=== PATIENT | male | born 1960 | race Caucasian/White ===

== ENCOUNTER 2022-06-30 09:52 | Outpatient (CLI) | payer BC, SELFPAY | END 2022-06-30 09:53 | disposition home or self-care (01) | PROVIDERS: PCP Family Medicine; Visit Provider Family Medicine | DX: Z00.00 Encounter for general adult medical examination without abnormal findings (principal); I10 Essential (primary) hypertension; E78.5 Hyperlipidemia, unspecified; E13.9 Other specified diabetes mellitus without complications; N40.0 Benign prostatic hyperplasia without lower urinary tract symptoms; M10.9 Gout, unspecified; Z13.29 Encounter for screening for other suspected endocrine disorder | CPT/HCPCS: 80048; 80061; 84153 ==

== ENCOUNTER 2023-08-03 10:06 | Outpatient (CLI) | payer BC, SELFPAY | END 2023-08-03 10:07 | disposition home or self-care (01) | PROVIDERS: PCP Family Medicine; Visit Provider Family Medicine | DX: E13.9 Other specified diabetes mellitus without complications (principal); E78.5 Hyperlipidemia, unspecified; I10 Essential (primary) hypertension | CPT/HCPCS: 80048; 80061 ==

== ENCOUNTER 2024-03-25 15:37 | Outpatient (CLI) | payer BC, SELFPAY | END 2024-03-25 15:38 | disposition home or self-care (01) | LOC: LKVREF 15:39 | PROVIDERS: PCP Family Medicine; Visit Provider Family Medicine | DX: Z12.5 Encounter for screening for malignant neoplasm of prostate (principal) | CPT/HCPCS: G0103 ==

== ENCOUNTER 2024-04-09 13:58 | Outpatient (RCR) | payer BC, SELFPAY ==
--- NOTE | 2024-04-09 15:37 | PT.OPEX ---
PT [place] Outpatient Eval PT [facility] Outpatient Eval Start: 04/09/24 10:40 Freq: Status: Active Protocol: Document 04/09/24 10:40 HLA (Rec: 04/09/24 15:36 HLA [id number]) E-signed By Radha Samano, PT, DPT Physical Therapy Outpatient Evaluation Insurance Information Insurance Name [employer] Medical Diagnosis OA L knee, pain, stiffness, preop teaching for TKA surgery PMHx of type II diabetes, hyperlipidemia, HTN, AURELIANO, gout Treating Diagnosis L knee pain, OA, stiffness Referring MD Roque Subjective Preferred Name Osman Subjective Occ pain L knee, limits amb, knee bows and gives out, feels ready to get his knee done 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 Pt can amb 1/2 mile. Balance screen intact Stairs reciprocally Sensation/Reflexes intact to light touch Assessment Assessment/Impression Osman is a 63 year old male with PMHx of type II DM, HTN, hyperlipidemia, AURELIANO, and gout, now with pain due to OA L knee and will be undergoing a L TKA with Dr. Roque on . Here for preop teaching. Pt lives in a 1 level home, 3 step entry no stairs. can assist after surgery. Has basement shower, main floor shower in tub with glass doors so he will use basement shower. Needs to borrow a walker, has cane for home. Pt was instructed in TKA ex program (quad sets, ham sets, ankle pumps, heel slides, SAQ, SLR, seated knee flex/ext and hamstring stretches) per protocol to be practiced pre- operatively and for improved learning post-operatively. Pt was instructed in hospital post-op progression in PT, safety, fall prevention. Pt was instructed in positioning in chair, use of ice/polar care, bed, transfer safety, gt safety with walker, stairs, car transfers and outpatient therapy progression. He will dc with OP PT in [place] after surgery. DC. Primary Functional Limitations pain L knee, impaired mobility Plan of Care Rehabilitation Potential Excellent Physical Therapy Goals 1. Within this session: Pt will verbalize understanding of pre-op/post-op safety, mobility and exercises with home program issued and pt returning for ongoing therapy after TKA replacement. Coordination/Communication With Referral Source Treatment Plan/Direct Interventions Gait Training,Manual Therapy, Neuromuscular Re-ed,Self-Care/ Home Management,Therapeutic Activities,Therapeutic Exercises Patient Will Be Discharged From Therapy Completion of LTG(s),Skills Plateau,Independent w/HEP, Independently Progressing Evaluation Billing Untimed Code Treatment Minutes 10 PT Eval No Charge No Complexity Low Certification Information Initial Certification Date 04/09/24 Ending Certification Date 07/07/24 Provider Signature Required Yes Provider Signature Shows Agreement With POC & Medical Necessity Physician NPI Number Write NPI# Here Physician Comment/Change : Physician Signature & Date Requested Please Sign/Date Here
== END 2024-04-10 11:33 | disposition home or self-care (01) ==
PROVIDERS: PCP Family Medicine; Visit Provider Orthopaedic Surgery
DX: M17.12 Unilateral primary osteoarthritis, left knee (principal); Z96.652 Presence of left artificial knee joint; M25.562 Pain in left knee; Z51.89 Encounter for other specified aftercare
CPT/HCPCS: 97110; 97161

== ENCOUNTER 2024-04-15 05:50 | Day surgery (SDC) | payer BC, SELFPAY ==
[2024-04-15] VITALS (19 sets, daily range): BP systolic 100–124; BP diastolic 61–85; PULSE 46–70; RESP 14–17; TEMP 36.1–37.3; O2SAT 92–98; BMI 34.7
--- OUTSIDE RECORDS SUMMARY | 2024-04-15 05:52 | XMS_ITS | Clinical Summary ---
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
--- OUTSIDE RECORDS SUMMARY | 2024-04-15 05:52 | XMS_ITS | Continuity of Care Document ---
Author Organization [facility] Address [address] [address] [place] [address] Phone Care Team Providers Care Clinical Quality Assurance Specialist Name Role Phone Sergio Sams MD Unavailable Unavailable Allergies, Adverse Reactions, Alerts Substance Reaction Status Criticality No Known allergies Medications Medication Instructions Dosage Effective Dates (start - stop) Status Comments Prilosec 20 mg Cap Take one tablet by mouth twice a day - Active Procedures Procedure Date Ugi Endo; W/bx 1/mx Esoph Motility Study; Offic/outpt E&m Estab Mod-hi 2 09 Ugi Endo; W/bx 1/mx Advance Directives Directive Yes / No Effective Date File Name No Information Encounters Encounter Description Practice Location Reason(s) For Visit Diagnoses Date Provider Providers Copied on Encounter [facility], [address] [address], [place], [place], [id number], [place] tel:[phone] [facility] No Information [address] [facility], [facility] [address], [place], [place], [id number], [place]. tel:[phone] [facility], [address] [address], [place], [place], [id number], [place] tel:[phone] [facility] No Information 2 No Information Referring Provider: Sam Cannon, [address] [place] [address], [address]. tel:[phone] [facility], [address] [address], [place], [place], [id number], [place] tel:[phone] [facility] No Information [address]. [address] [facility], [place], [place], [address], [place]. tel:[phone] Referring Provider: Sam Cannon, [address] [place], [address]. tel:[phone] Offic/outpt E&m Estab Mod-hi 2 [facility], [address] [address], [place], [place], [id number], [place] tel:[phone] [facility] [employer] No Information 9 No Information Referring Provider: Sam Cannon, [address] [place] [address], [address]. tel:[phone] [facility], [address] [address], [place], [place], [address], [place] tel:[phone] [facility] [employer] No Information 9 No Information Referring Provider: Sam Cannon, [address] [place] [address], [address]. tel:[phone] Family History Family Member Type Diagnosis Age At Onset No Information Payers Payer name Insurance type Covered constitution party ID Authoriza tion(s) No Information Social History Type Description Quantity Date Captured Comments Sex Male Smoking Status No Information Chief Complaint And Reason For Visit No Information Reason For Referral Reason For Referral No Information History Of Present Illness Encounter Date Complaint History Of Prese nt Illness No Information Functional Status Date Functional Assessmen t No Information Instructions Date Instruction Additional Infor mation No Information Assessments Type Assessment Date No Information Patient Care Teams Name Effective Dates (start - stop) Status Members No Information
[2024-04-15] MEDS: OXYCODONE (CR) 10 MG TAB.ER.12H PO (06:30)
[2024-04-15] MEDS: CELECOXIB 200 MG CAPSULE PO (06:30)
[2024-04-15] MEDS: ACETAMINOPHEN 500 MG TABLET 1000 MG PO (06:30)
[2024-04-15] MEDS: LACTATED RINGERS 1000 ML 1,000 ML 100 ML IV ×2 (06:45→09:45)
[2024-04-15] MEDS: SODIUM CHLORIDE 0.9 % (FLUSH) 10 ML SYRINGE IVF (06:45)
[2024-04-15] MEDS: MIDAZOLAM HCL 1 MG/ML inj IVP (07:13)
[2024-04-15] MEDS: fentaNYL 100 MCG/2 ML inj IVP (07:13)
--- NOTE | 2024-04-15 07:17 | SUR.PREOP ---
TIME?OUT:?711 PT/RN/MDA?VERIFICATION?OF?SURGICAL?SITE,?PROCEDURE,?AND?CONSENT OBTAINED?PRIOR?TO?INVASIVE?PROCEDURE.
[2024-04-15] MEDS: TRANEXAMIC ACID 100 MG/ML INJ 1000 MG IV (08:16)
[2024-04-15] MEDS: CEFAZOLIN 2 GM INJ IVP (08:17)
--- NOTE | 2024-04-15 09:24 | CRLHL7_ITS ---
For Patients: As a result of the Cures Act, medical imaging exams and procedure reports are released immediately into your electronic medical record. You may view this report before your referring provider. If you have questions, please contact your health care provider. Indication: Postop status post left TKA Technique: Two views were obtained portably immediately postoperatively Comparison: None Findings: As described below Impression: There is a left knee arthroplasty noted. Alignment is normal. No fracture. No abnormal lucency about the implants. No unexpected findings immediately postoperatively by plain film. Dictated by Joseph Bustamante MD @ 04/15/2024 11:32:45 AM (Electronically Signed)
--- NOTE | 2024-04-15 09:26 | PM.ORPRC ---
Procedure Note Date of procedure: 04/15/24 Procedure: PREOPERATIVE DIAGNOSIS: Left knee osteoarthritis POSTOPERATIVE DIAGNOSIS: Left knee osteoarthritis NAME OF OPERATION: Left total knee arthroplasty SURGEON: Yann Roque MD ELECTROPLATER APPRENTICE: TENZIN Dos Santos ANESTHESIA: Spinal ESTIMATED BLOOD LOSS: 0 mL COMPLICATIONS: None SPECIMENS: None DRAINS: None PREOPERATIVE ANTIBIOTICS: Ancef 2 grams, antibiotic impregnated cement IMPLANTS: 1. J&J Attune # 9 posterior stabilized femur 2. # 8 fixed-bearing tibia 3. # 9 posterior stabilized, 5 mm fixed-bearing polyethylene 4. 41 patella INDICATIONS: The patient is a 63-year-old with a longstanding history of severe, unrelenting left knee pain secondary to end-stage (grade IV) left knee osteoarthritis. Despite appropriate nonoperative management, including activity modification, anti-inflammatories, rzlz-phy-nxxwpnk pain medication, bracing, physical therapy, and injections they continue to have pain and disability. Operative intervention was offered. The risks, benefits and expected outcomes were discussed in detail. These included but were not limited to: Infection, bleeding, injury to blood vessel or nerve, venous thromboembolism. All questions were answered to their satisfaction. Use of an assistant professor sculpture was necessary throughout the case for patient positioning and safety, soft tissue retraction, and closure. PROCEDURE: Spinal anesthesia was administered. The patient was placed supine on the operating table. The assistant professor sculpture made sure the patient was positioned appropriately. The lower extremity was prepped and draped in the usual sterile fashion. The limb was exsanguinated with the Gurdeep bandage. The pneumatic tourniquet was inflated to 300 mmHg. A standard anterior incision was made with the knee in flexion. Subcutaneous dissection was sharply taken through fascial layer #1. Full-thickness medial and lateral flaps were elevated. The assistant professor sculpture retracted the soft tissues and protected them throughout the case. A standard subvastus approach was made. The patella was subluxed. The infrapatellar fat pad was debrided. The menisci and cruciate ligaments were sharply d?brided. Marginal osteophytes were d?brided with the rongeur. The drill was used to penetrate the femoral canal. The canal was aspirated and irrigated with pulse lavage. The intramedullary femoral guide was placed for a 5-degree valgus cut, removing 10 mm off the distal femur. The saw was used to make the cut. Whitesides line and the trans epicondylar axis were marked. The femoral sizing guide was pinned onto the distal femur. Three degrees of external rotation nicely parallels the transepicondylar axis. Pins were placed for posterior referencing. The four-in-one cutting guide was pinned onto the distal femur. The anterior, posterior, and chamfer cuts were made. The assistant professor sculpture protected the collateral ligaments. The box cutting guide was pinned. The box cuts were made. The boxed trial was placed and was an excellent fit. Drill holes for the lugs were made. Attention was then turned to the proximal tibia. The extramedullary tibial guide was placed for a neutral varus/valgus cut with 5 degrees of posterior slope, removing 2 mm based off the medial tibial surface. The assistant professor sculpture protected the collateral ligaments and the neurovascular bundle. The saw was used to make the cut. Trial components were placed. The knee was nicely balanced in both flexion and extension. The trial components were removed. The tray was placed in appropriate rotation, parallel to our tibial cutting pins. It was pinned by the assistant professor sculpture and the drill and the punch were used. The tray was removed. The punch was used again. We placed a bone plug in the femoral canal. Attention was then turned to the patella. Telida patellar thickness was 25 mm. The lobster claw resection guide was used with the 9.5 mm ninoska. The saw was used to make the cut. Drill holes were made by the assistant professor sculpture. The trial was placed and was an excellent fit. Cancellous surfaces were irrigated with pulse lavage and thoroughly dried by the assistant professor sculpture. We cemented the tibial component, then the femoral component. We impacted the 5 mm polyethylene onto the tibial tray. The knee was brought into full extension. We then cemented the patellar component. Excessive cement was removed. The cement was allowed to harden. The knee was taken through a range of motion and was found to be nicely balanced in both flexion and extension. The patella tracks centrally. The assistant professor sculpture did a three minute dilute Betadine solution soak. The assistant professor sculpture irrigated the wound with 3 liters of normal saline via pulse lavage. The assistant professor sculpture reapproximated the extensor mechanism with #1 Vicryl in an interrupted hxzmca-hx-lnkvh fashion. The assistant professor sculpture then ran the extensor mechanism with a #1 PDO Stratafix. The assistant professor sculpture closed the subcutaneous tissues with a 3-0 Stratafix and the skin with a running 3-0 Stratafix in a subcuticular fashion. Glue was used to seal the skin. The assistant professor sculpture placed a dry dressing. Sponge and needle counts were correct x2. The patient tolerated the procedure well. There were no apparent complications. They were carefully transferred to the hospital bed and taken to the postanesthesia care unit in satisfactory condition. PLAN: The patient will be mobilized with physical therapy. Aspirin will be used for DVT prophylaxis. They will be discharged to home once medically appropriate.
--- NOTE | 2024-04-15 10:02 | P.ANES_ITS ---
Anesthesia Charges Start Date/Time Anesthesia Start Date: 04/15/24 Anesthesia Start Time: 07:52 Stop Date/Time Anesthesia Stop Date: 04/15/24 Anesthesia Stop Time: 09:57 Coding CPT Codes CPT Codes: ANESTH KNEE ARTHROPLASTY - 88099 ([id number]) P2 - PATIENT W/MILD SYST DISEASE, QK - HEALTH RECORD TECHNICIAN 2-4 CNCRNT ANES PROC, QX - BULK TANK CAR UNLOADER SVC W/ MD MED DIRECTION
--- NOTE | 2024-04-15 10:02 | W.ANESCHARGE ---
Anesthesia Charges Start Date/Time Anesthesia Start Date: 04/15/24 Anesthesia Start Time: 07:52 Stop Date/Time Anesthesia Stop Date: 04/15/24 Anesthesia Stop Time: 09:57 Coding CPT Codes CPT Codes: ANESTH KNEE ARTHROPLASTY - 05407 ([id number]) P2 - PATIENT W/MILD SYST DISEASE, QK - INFANT CHILDCARE PROVIDER 2-4 CNCRNT ANES PROC, QX - HURRICANE TRACKER SVC W/ MD MED DIRECTION
--- NOTE | 2024-04-15 10:05 | P.NB_ITS ---
Nerve Block Nerve Block Time Seen by Provider: 07:16 Date Seen: 04/15/24 Type of block requested by surgeon for post-operative analgesia: adductor canal Side: left Time out performed: Yes Verification of patient name: Yes Verification of date of : Yes Site marking: site marked Name of person performing procedure: Lacho Continuous monitoring Was continuous monitoring of O2 sat, B/P, interlocking and signal mechanic, recorded every 15 minutes?: Yes Procedure Checklist: sterile prep, needles and gloves Ultrasound guided. Images saved: Yes Medications given in 5ml increments after negative aspiration: Marcaine %: 0.25 mL: 15 Needle gauge: 20 Precedex (mcg): 25 Patient tolerated procedure well: Yes Block Charges Block Charge (with Pro Fee): Femoral Nerve Use of Ultrasound Machine for Block: Yes- US Guidance/pain block
--- NOTE | 2024-04-15 10:07 | P.NB_ITS ---
Nerve Block Nerve Block Time Seen by Provider: 07:16 Date Seen: 04/15/24 Type of block requested by surgeon for post-operative analgesia: geniculars Side: left Time out performed: Yes Verification of patient name: Yes Verification of date of : Yes Site marking: site marked Name of person performing procedure: Lacho Continuous monitoring Was continuous monitoring of O2 sat, B/P, cardiac specialist, recorded every 15 minutes?: Yes Procedure Checklist: sterile prep, needles and gloves Ultrasound guided. Images saved: Yes Medications given in 5ml increments after negative aspiration: Marcaine %: 0.25 mL: 9 Needle gauge: 25 Patient tolerated procedure well: Yes Block Charges Block Charge (with Pro Fee): Genicular Nerve Block
--- NOTE | 2024-04-15 10:08 | P.ANES_ITS ---
Anesthesia Charges Start Date/Time Anesthesia Start Date: 04/15/24 Anesthesia Start Time: 07:52 Stop Date/Time Anesthesia Stop Date: 04/15/24 Anesthesia Stop Time: 09:57 Coding CPT Codes CPT Codes: ANESTH KNEE ARTHROPLASTY - 97502 ([id number]) QK - INSPECTOR EYEGLASS 2-4 CNCRNT ANES PROC, QX - RISK ADJUSTMENT SPECIALIST SVC W/ MD MED DIRECTION, P2 - PATIENT W/MILD SYST DISEASE
--- NOTE | 2024-04-15 10:08 | W.ANESCHARGE ---
Anesthesia Charges Start Date/Time Anesthesia Start Date: 04/15/24 Anesthesia Start Time: 07:52 Stop Date/Time Anesthesia Stop Date: 04/15/24 Anesthesia Stop Time: 09:57 Coding CPT Codes CPT Codes: ANESTH KNEE ARTHROPLASTY - 75979 ([id number]) QK - RADIATION OFFICER 2-4 CNCRNT ANES PROC, QX - PROJECT ARCHITECT SVC W/ MD MED DIRECTION, P2 - PATIENT W/MILD SYST DISEASE
--- NOTE | 2024-04-15 12:39 | SUR.PHASEII ---
Patient tolerarating toast and water. Patient stated no nausea or dizzinness with ambulation to bathroom. Patient able to void. To PT at 1235.
== END 2024-04-15 13:20 | disposition home or self-care (01) ==
LOC: OR 05:51
PROVIDERS: PCP Family Medicine; Visit Provider Orthopaedic Surgery
PROC: (CPT 27447; principal; 2024-04-15 07:30)
DX: M17.12 Unilateral primary osteoarthritis, left knee (principal); G89.18 Other acute postprocedural pain; E13.9 Other specified diabetes mellitus without complications; G47.33 Obstructive sleep apnea (adult) (pediatric); I10 Essential (primary) hypertension
CPT/HCPCS: 27447; 01402; 64447; 64454; 73560; 76942; 82962; 97110; 97116; 97161; A9270; C1776; J0665; J0690; J1100; J2250; J2371; J2405; J2704; J3010; J7120

== ENCOUNTER 2024-09-08 13:49 | Outpatient (CLI) | payer BC, SELFPAY | END 2024-09-08 13:50 | disposition home or self-care (01) | LOC: LKVREF 13:50 | PROVIDERS: PCP Family Medicine; Visit Provider Family Medicine | DX: E78.5 Hyperlipidemia, unspecified (principal) | CPT/HCPCS: 80061 ==